=== PATIENT | female | born 1985 | race Caucasian/White ===

== ENCOUNTER 2023-01-05 12:20 | Emergency (ER) | payer SELFPAY ==
[2023-01-05 12:33] VITALS: BP 114/73; PULSE 78; RESP 18; TEMP 98.3; BMI 21.9
[2023-01-05] MEDS ORDERED: ACETAMINOPHEN 1000 MG/100 ML BAG IVPB ONE (13:56)
[2023-01-05] MEDS ORDERED: SODIUM CHLORIDE 1,000 ML IV STA (13:56)
[2023-01-05] MEDS ORDERED: ACETAMINOPHEN INJECTION 100 ML IVPB ONE (14:05)
[2023-01-05 14:42] LABS: BASO % 1.1 % (0-2.0); EOS % 1.1 % (0-4.5); HEMATOCRIT 39.5 % (32.4-45.2); HEMOGLOBIN 13.9 GM/dL (10.7-15.3); LYMPH % 29.2 % (8-40); MCH 30.5 pg (25.7-33.7); MCHC 35.2 g/dl (32.0-36.0); MEAN CELL VOLUME 86.7 fl (80-96); MEAN PLT VOLUME 7.8 fl (7.5-11.1); MONO % 6.5 % (3.8-10.2); NEUT % 62.1 % (42.8-82.8); PLATELET COUNT 299 10^3/uL (134-434); RBC 4.56 M/mm3 (3.60-5.2); RDW 12.9 % (11.6-15.6)
[2023-01-05 14:45] LABS: EPI CELLS >36 /uL (0-25.1); HYALINE CASTS 0 /uL (0-3.1); URINE APPEARANCE CLOUDY; URINE BACTERIA 2170 /uL (0-1359); URINE BILIRUBIN NEGATIVE (NEGATIVE); URINE COLOR YELLOW; URINE GLUCOSE (UA) NEGATIVE (NEGATIVE); URINE KETONE NEGATIVE (NEGATIVE); URINE LEUK ESTERASE 1+ (NEGATIVE); URINE NITRITE NEGATIVE (NEGATIVE); URINE PROTEIN NEGATIVE (NEGATIVE); URINE RBC 15 /uL (0-23.9); URINE WBC 32 /uL (0-25.8)
[2023-01-05 15:02] LABS: POTASSIUM 3.8 mmol/L (3.5-5.1)
[2023-01-05 15:04] LABS: CALCIUM 9.7 mg/dL (8.5-10.1)
[2023-01-05 15:05] LABS: ALBUMIN 4.1 g/dl (3.4-5.0); BLOOD UREA NITROGEN 11.5 mg/dL (7-18)
[2023-01-05 15:08] LABS: CREATININE 0.6 mg/dL (0.55-1.3)
[2023-01-05 15:09] LABS: BILIRUBIN,TOTAL 0.4 mg/dL (0.2-1); TOT PROT 7.7 g/dl (6.4-8.2)
== END 2023-01-05 17:57 | disposition home or self-care (01) ==
LOC: JER 12:20
PROC: 3E033NZ Introduction of Analgesics, Hypnotics, Sedatives into Peripheral Vein, Percutaneous Approach (ICD-10-PCS; principal; 2023-01-05)
PROC: 3E0337Z Introduction of Electrolytic and Water Balance Substance into Peripheral Vein, Percutaneous Approach (ICD-10-PCS; 2023-01-05)
DX: R07.89 Other chest pain (principal); R11.0 Nausea; M54.9 Dorsalgia, unspecified; M54.2 Cervicalgia; R63.0 Anorexia; R53.81 Other malaise; Z20.822 Contact with and (suspected) exposure to COVID-19
CPT/HCPCS: 0241U-QW; 36415; 71046-TC-FY; 80053; 81003; 84484; 84703; 85025; 87086; 93005; 93010; 99285-25

== ENCOUNTER 2023-02-27 13:32 | Emergency (ER) | payer OTHER ==
[2023-02-27 13:54] VITALS: BP 103/72; PULSE 78; RESP 18; TEMP 97.6; BMI 22.4
[2023-02-27] MEDS ORDERED: METOCLOPRAMIDE HCL INJECTION 10 MG/2 ML VIAL IVPUSH ONE (15:15)
[2023-02-27] MEDS ORDERED: ACETAMINOPHEN 1000 MG/100 ML BAG IVPB ONE (15:23)
[2023-02-27] MEDS ORDERED: FAMOTIDINE 20 MG/50 ML IVPB 20 MG/50 ML MG IVPB ONE ×2 (15:23→15:30)
[2023-02-27] MEDS ORDERED: MAG HYDROX/AL HYDROX/SIMETH 30 ML UNIT-DOSE CUP PO ONE (15:23)
[2023-02-27] MEDS ORDERED: METOCLOPRAMIDE HCL INJECTION 10 MG/2 ML VIAL ONE (15:29)
[2023-02-27] MEDS ORDERED: ACETAMINOPHEN INJECTION 100 ML IVPB ONE (15:30)
[2023-02-27] MEDS ORDERED: LACTATED RINGERS SOLUTION 1,000 ML/1,000 ML INFUS.BAG IV SCH (15:30)
[2023-02-27] MEDS ORDERED: MAG HYDROX/AL HYDROX/SIMETH 30 ML UNIT-DOSE CUP ONE (15:30)
[2023-02-27 16:06] LABS: BASO % 1.2 % (0-2.0); EOS % 1.7 % (0-4.5); HEMOGLOBIN 12.8 GM/dL (10.7-15.3); LYMPH % 29.2 % (8-40); MCH 29.5 pg (25.7-33.7); MCHC 32.9 g/dl (32.0-36.0); MEAN CELL VOLUME 89.8 fl (80-96); MEAN PLT VOLUME 8.7 fl (7.5-11.1); MONO % 7.8 % (3.8-10.2); NEUT % 60.1 % (42.8-82.8); PLATELET COUNT 312 10^3/uL (134-434); RBC 4.34 M/mm3 (3.60-5.2)
[2023-02-27 16:29] LABS: POTASSIUM 3.9 mmol/L (3.5-5.1)
[2023-02-27 16:30] LABS: BLOOD UREA NITROGEN 12.1 mg/dL (7-18); CALCIUM 9.2 mg/dL (8.5-10.1); MAGNESIUM 2.2 mg/dL (1.8-2.4)
[2023-02-27 16:32] LABS: ALBUMIN 3.8 g/dl (3.4-5.0)
[2023-02-27 16:34] LABS: CREATININE 0.8 mg/dL (0.55-1.3)
[2023-02-27 16:36] LABS: BILIRUBIN,TOTAL 0.3 mg/dL (0.2-1); TOT PROT 7.2 g/dl (6.4-8.2)
[2023-02-27 17:17] LABS: POTASSIUM 3.7 mmol/L (3.5-5.1)
[2023-02-27 17:18] LABS: CALCIUM 8.8 mg/dL (8.5-10.1)
[2023-02-27 17:19] LABS: BLOOD UREA NITROGEN 11.3 mg/dL (7-18)
[2023-02-27 17:22] LABS: CREATININE 0.6 mg/dL (0.55-1.3)
== END 2023-02-27 17:47 | disposition home or self-care (01) ==
LOC: JER 13:32
PROC: 3E033GC Introduction of Other Therapeutic Substance into Peripheral Vein, Percutaneous Approach (ICD-10-PCS; principal; 2023-02-27)
PROC: 3E033NZ Introduction of Analgesics, Hypnotics, Sedatives into Peripheral Vein, Percutaneous Approach (ICD-10-PCS; 2023-02-27)
PROC: 3E033GC Introduction of Other Therapeutic Substance into Peripheral Vein, Percutaneous Approach (ICD-10-PCS; 2023-02-27)
DX: R07.9 Chest pain, unspecified (principal); R51.9 Headache, unspecified; R53.1 Weakness; R11.0 Nausea
CPT/HCPCS: 36415; 70450-TC; 71046-TC-FY; 80048; 80053; 83735; 84484; 84703; 85025; 93005; 93010; 99285-25

== ENCOUNTER 2024-05-16 17:28 | Emergency (ER) | payer SELFPAY ==
[2024-05-16 17:36] VITALS: BP 116/77; PULSE 98; RESP 18; TEMP 98.2; BMI 24.3
[2024-05-16] MEDS ORDERED: ACETAMINOPHEN 500 MG TABLET (FP) ONE (18:25)
[2024-05-16] MEDS ORDERED: ONDANSETRON 4 MG/2 ML VIAL ONE (18:25)
[2024-05-16] MEDS: SODIUM CHLORIDE 0.9% 500 ML INFUS.BAG IV ONE (18:40)
[2024-05-16] MEDS: ACETAMINOPHEN 500 MG TABLET (FP) PO ONE (18:41)
[2024-05-16] MEDS: ONDANSETRON 4 MG/2 ML VIAL IVPUSH ONE (18:41)
[2024-05-16 19:03] LABS: BASO % 0.7 % (0-2.0); EOS % 1.2 % (0-4.5); HEMATOCRIT 40.8 % (32.4-45.2); LYMPH % 22.5 % (8-40); MCH 29.9 pg (25.7-33.7); MCHC 34.2 g/dl (32.0-36.0); MEAN CELL VOLUME 87.4 fl (80-96); MEAN PLT VOLUME 7.7 fl (7.5-11.1); MONO % 6.7 % (3.8-10.2); NEUT % 68.9 % (42.8-82.8); PLATELET COUNT 330 10^3/uL (134-434); RBC 4.67 M/mm3 (3.60-5.2); RDW 13.5 % (11.6-15.6); WHITE BLOOD COUNT 9.1 K/mm3 (4.0-10.0)
[2024-05-16] MEDS ORDERED: KETOROLAC TROMETHAMINE 30 MG/1 ML VIAL ONE (19:34)
[2024-05-16] MEDS: KETOROLAC TROMETHAMINE 30 MG/1 ML VIAL IVPUSH ONE (19:39)
[2024-05-16 20:17] LABS: POTASSIUM 3.7 mmol/L (3.5-5.1)
[2024-05-16 20:20] LABS: ALBUMIN 4.1 g/dl (3.4-5.0); CALCIUM 9.5 mg/dL (8.5-10.1)
[2024-05-16 20:24] LABS: CREATININE 0.6 mg/dL (0.55-1.3)
[2024-05-16 20:25] LABS: BILIRUBIN,TOTAL 0.6 mg/dL (0.2-1); TOT PROT 7.7 g/dl (6.4-8.2)
== END 2024-05-16 20:30 | disposition home or self-care (01) ==
LOC: JER 17:28
PROC: 3E0333Z Introduction of Anti-inflammatory into Peripheral Vein, Percutaneous Approach (ICD-10-PCS; principal; 2024-05-16)
PROC: 3E033GC Introduction of Other Therapeutic Substance into Peripheral Vein, Percutaneous Approach (ICD-10-PCS; 2024-05-16)
DX: G43.909 Migraine, unspecified, not intractable, without status migrainosus (principal); R10.9 Unspecified abdominal pain; R11.2 Nausea with vomiting, unspecified; Z20.822 Contact with and (suspected) exposure to COVID-19
CPT/HCPCS: 0241U-QW; 36415; 80053; 84703; 85025; 99284-25